=== PATIENT | female | born 1990 | race Caucasian/White ===

== ENCOUNTER 2019-07-18 23:39 | Emergency (ER) | payer MEDICAID ==
[~2019-07-18] VITALS: Ht 172.7 cm; Wt 84.1 kg
[~2019-07-18 23:39] MED LIST: HYDR-4383 PO; MEDR150V IM; METH4TAB81 PO; METO5TAB98 PO; SUMA25TA35 PO; ZOF4T PO
[2019-07-19] MEDS ORDERED: ACET-3067 PO
[2019-07-19] MEDS ORDERED: ketorolac trometh. 30mg/ml inj. IV ONE
[2019-07-19] MEDS ORDERED: CLIN-96 PO
[2019-07-19 00:24] VITALS: BP 140/110
== END 2019-07-19 00:25 | disposition home or self-care (01) ==
LOC: ER 23:39
DX: K02.9 Dental caries, unspecified (principal); F17.200 Nicotine dependence, unspecified, uncomplicated; Z98.890 Other specified postprocedural states; Z79.2 Long term (current) use of antibiotics; Z79.899 Other long term (current) drug therapy
CPT/HCPCS: 96374; 99283; J1885

== ENCOUNTER 2021-03-22 10:25 | Emergency (ER) | payer MEDICAID ==
[~2021-03-22 10:25] MED LIST changes: +CLIN-97 PO
== END 2021-03-22 13:14 | disposition left against medical advice (07) ==
LOC: ER 10:25
DX: M25.569 Pain in unspecified knee (principal); Z53.21 Procedure and treatment not carried out due to patient leaving prior to being seen by health care provider

== ENCOUNTER → 2022-07-27 | Emergency (ER) | payer MEDICAID ==
[~2022-07-27] VITALS: Ht 172.7 cm; Wt 95.0 kg
[~2022-07-27] MED LIST changes: +CIPR-259 PO; +ONDA4TAB12 PO; +ketorolac trometh. 30mg/ml inj. IV ONE; +morphine 4 MG/ML inj SYRINge IV ONE; +normal saline 1000ML IV soln IVB ONE; +ondansetron 4mg rapidly disintigrating tab PO ONE; +ondansetron/PF 4mg/2ml inj IV ONE; +piperacillin/tazo 3.375gm/50ml 50 ML IV ONE
[2022-07-27 15:34] LABS: URINE HCG NEGATIVE (NEG)
[2022-07-27 15:35] LABS: BASOPHILS % (AUTO) 0.3 % (0-1); EOSINOPHILS # (AUTO) 0.1 X10'3 (0-0.9); EOSINOPHILS % (AUTO) 0.5 % (0-6); HEMATOCRIT 42.9 % (35.0-45.0); HEMOGLOBIN 14.4 g/dl (12.0-16.0); LYMPHOCYTES # (AUTO) 3.2 X10'3 (1.1-4.8); LYMPHOCYTES % (AUTO) 21.8 % (21-51); MEAN CORPUSCULAR HEMOGLOBIN 29.5 PG (27.0-31.0); MEAN CORPUSCULAR HGB CONC 33.6 g/dL (33.0-36.5); MEAN CORPUSCULAR VOLUME 87.7 FL (78-98); MEAN PLATELET VOLUME 8.7 FL (7.4-10.4); MONOCYTES # (AUTO) 0.8 X10'3 (0-0.9); MONOCYTES % (AUTO) 5.3 % (2-12); NEUTROPHILS # (AUTO) 10.5 X10'3 (1.8-7.7); NEUTROPHILS % (AUTO) 72.1 % (42-75); PLATELET COUNT 311 X10'3 (140-440); RED BLOOD COUNT 4.89 X10'6 (4.20-5.60); WHITE BLOOD COUNT 14.5 X10'3 (4.5-11.0)
[2022-07-27 15:36] LABS: CLARITY,URINE SLIGHTLY CLOUDY (Clear); COLOR,URINE YELLOW (Yellow); GLUCOSE, URINE NEGATIVE (Neg); KETONES,URINE TRACE mg/dl (Neg); LEUKOCYTE ESTERASE ,URINE NEGATIVE (Neg); NITRITES, URINE NEGATIVE (Neg); OCCULT BLOOD,URINE SMALL (Neg); PROTEIN,URINE NEGATIVE (Neg); UROBILINOGEN,URINE 0.2 E.U/dL (0.2-1.0)
[2022-07-27 15:38] LABS: UA COLLECTION TYPE CLN CATCH MIDSTREAM
[2022-07-27 15:42] LABS: HYALINE CASTS 0-3 /LPF (NEGATIVE); MUCUS STRANDS MANY /LPF (Neg); SQUAMOUS EPITHELIAL CELL,UR MANY /LPF (FEW)
[2022-07-27 15:43] LABS: WBC,URINE 0-4 /HPF (0-4)
[2022-07-27 15:44] LABS: BACTERIA,URINE FEW /HPF (Neg)
[2022-07-27 15:49] LABS: ALANINE AMINOTRANSFERASE 22 U/L (12-78); ALBUMIN 4.4 G/DL (3.4-5.0); ALBUMIN/GLOBULIN RATIO 1.1 (1.1-1.5); ALKALINE PHOSPHATASE 74 IU/L (46-116); ANION GAP 10 (8-16); ASPARTATE AMINO TRANSFERASE 15 U/L (10-37); BILIRUBIN,TOTAL 0.4 MG/DL (0.1-1.0); BLOOD UREA NITROGEN 12 MG/DL (7-18); BUN/CREATININE RATIO 13.5 (6.6-38.0); CALCIUM 9.4 MG/DL (8.5-10.1); CHLORIDE 104 MMOL/L (99-107); CREATININE 0.89 MG/DL (0.40-0.90); GLUCOSE 81 MG/DL (70-104); LIPASE < 50 U/L (73-393); POTASSIUM 3.8 MMOL/L (3.5-5.1); SODIUM 140 MMOL/L (135-145); TOTAL CARBON DIOXIDE 26.4 MMOL/L (24-32); TOTAL PROTEIN 8.3 G/DL (6.4-8.2); eGFR 74 ML/MIN
--- NOTE | 2022-07-27 18:23 | NUR ---
Marychuy borrero in [facility] - 07/27/22 at 1842 by KIMBERLY JANI VAUGHN [phone]
--- NOTE | 2022-07-27 18:35 | NUR ---
TO CT SCAN VIA WHEELCHAIR IN STABLE CONDITION.
[2022-07-27 20:18] VITALS: BP 122/76
== END | disposition home or self-care (01) ==
LOC: ER 15:02
DX: R10.11 Right upper quadrant pain (principal); R11.2 Nausea with vomiting, unspecified; G43.909 Migraine, unspecified, not intractable, without status migrainosus; Z87.442 Personal history of urinary calculi; Z79.899 Other long term (current) drug therapy
CPT/HCPCS: 36415; 74176; 76700; 80053; 81001; 81025; 83690; 85025; 96361; 96374; 96375; 99285; J1885; J2270; J2405; J2543; J7030

== ENCOUNTER 2022-10-09 08:26 | Day surgery (SDC) | payer MEDICAID ==
[~2022-10-09] VITALS: Ht 172.7 cm; Wt 93.2 kg
[~2022-10-09 08:26] MED LIST changes: -CIPR-259 PO; -ketorolac trometh. 30mg/ml inj. IV ONE; -morphine 4 MG/ML inj SYRINge IV ONE; -normal saline 1000ML IV soln IVB ONE; -ondansetron 4mg rapidly disintigrating tab PO ONE; -ondansetron/PF 4mg/2ml inj IV ONE; -piperacillin/tazo 3.375gm/50ml 50 ML IV ONE
[2022-10-09 08:30] VITALS: BP 131/94
[2022-10-09] MEDS ORDERED: PANT20TA18 PO (09:01)
[2022-10-09] MEDS ORDERED: fentaNYL/PF 50MCG/1 ML 2ML syringe ONE (09:18)
[2022-10-09] MEDS ORDERED: MIDAZolam 1 MG/ML 5ML VIAL ONE (09:18)
[2022-10-09] MEDS ORDERED: LIDOcaine Viscous 15ml cup ONE (09:19)
[2022-10-09] MEDS ORDERED: diphenhydrAMINE 50 mg/ml inj ONE ×2 (09:19→09:44)
[2022-10-09 10:20] VITALS: BP 115/76
[2022-10-09 10:30] VITALS: BP 125/66
[2022-10-09 10:40] VITALS: BP 115/73
[2022-10-09 10:50] VITALS: BP 116/69
== END 2022-10-09 11:15 | disposition home or self-care (01) ==
LOC: GI LAB 08:26
PROVIDERS: ATTEND Internal Medicine Gastroenterology
DX: K63.5 Polyp of colon (principal); K29.50 Unspecified chronic gastritis without bleeding; B96.81 Helicobacter pylori [H. pylori] as the cause of diseases classified elsewhere; Z79.899 Other long term (current) drug therapy
CPT/HCPCS: 43239; 45385; 99152; 99153; J1200; J2250; J3010; J7030; Z7512; A4620; C1889

== ENCOUNTER 2025-01-25 12:40 | Emergency (ER) | payer MEDICAID, OTHER ==
[~2025-01-25] VITALS: Ht 172.7 cm; Wt 96.2 kg
[~2025-01-25 12:40] MED LIST changes: -CLIN-97 PO; -HYDR-4383 PO; -MEDR150V IM; -METH4TAB81 PO; -METO5TAB98 PO; -ONDA4TAB12 PO; +PANT20TA18 PO; -SUMA25TA35 PO; -ZOF4T PO
[2025-01-25] MEDS ORDERED: PRED20TA PO (17:51)
[2025-01-25] MEDS: dexamethasone sod phosphate 10mg/ml inj IM STA (17:59)
[2025-01-25] MEDS: ketorolac trometh 30MG/ML vial 30 MG/ML VIAL IM ONE (17:59)
[2025-01-25 18:05] VITALS: BP 147/93; PULSE 79; RESP 16; TEMP 97.7; O2SAT 98
== END 2025-01-25 18:07 | disposition home or self-care (01) ==
LOC: ER 12:41
DX: R20.2 Paresthesia of skin (principal); M54.50 Low back pain, unspecified; G43.909 Migraine, unspecified, not intractable, without status migrainosus; Z87.442 Personal history of urinary calculi; Z90.89 Acquired absence of other organs
CPT/HCPCS: 72100; 72148; 96372; 99285; J1100; J1885